=== PATIENT | male | born 1995 | race American Indian/Alaskan Native ===

== ENCOUNTER 2019-09-19 01:24 | Emergency (ER) | payer SELFPAY ==
[2019-09-19 02:08] VITALS: BP 141/78
--- NOTE | 2019-09-19 02:47 | Emergency Department Report ---
ED Upper Extremity Inj HPI - General Chief Complaint: Extremity Injury, Upper Stated Complaint: LEFT HAND INJURY AT WORK Source: patient Mode of arrival: Ambulatory Limitations: No Limitations - History of Present Illness Initial Comments: Was at work and got finger crushed between 2 large gallon bands resulting in swelling and pain occurred a few minutes prior to arrival MD Complaint: Injury to:: left, finger Other Extremity Injury: Fingers: Left (Third digit) Other Injuries: none Handedness: right Place: work Improves With: none Worsens With: none Context: crush - Related Data Previous Rx's Medication Instructions Recorded Last Taken Type Ketorolac [Toradol] 10 mg PO Q6H PRN #15 tablet 09/19/19 Unknown Rx ED Review of Systems ROS: Stated complaint: LEFT HAND INJURY AT WORK Other details as noted in HPI Comment: All other systems reviewed and negative ED Past Medical Hx - Social History Smoking Status: Never Smoker Substance Use Type: Alcohol - Medications Home Medications: Home Medications Medication Instructions Recorded Confirmed Last Taken Type Ketorolac [Toradol] 10 mg PO Q6H PRN #15 tablet 09/19/19 Unknown Rx ED Physical Exam - General Limitations: No Limitations General appearance: alert, in no apparent distress - Head Head exam: Present: atraumatic, normocephalic - Eye Eye exam: Present: normal appearance - ENT ENT exam: Present: mucous membranes moist - Neck Neck exam: Present: normal inspection - Respiratory Respiratory exam: Present: normal lung sounds bilaterally. Absent: respiratory distress - Cardiovascular Cardiovascular Exam: Present: regular rate, normal rhythm. Absent: systolic murmur, diastolic murmur, rubs, gallop - GI/Abdominal GI/Abdominal exam: Present: soft, normal bowel sounds - Rectal Rectal exam: Present: deferred - Extremities Exam Extremities exam: Present: normal inspection, tenderness - Expanded Upper Extremity Exam Left Hand L/R Back: 1 - Pain swelling mild ecchymosis noted. No trauma to the nailbed. No discharge. Vascular: Present: normal capillary refill - Back Exam Back exam: Present: normal inspection - Neurological Exam Neurological exam: Present: alert, oriented X3, CN II-XII intact, normal gait - Psychiatric Psychiatric exam: Present: normal affect, normal mood - Skin Skin exam: Present: warm, dry, intact, normal color. Absent: rash ED Course Vital Signs 09/19/19 01:47 Temperature 98.7 F Pulse Rate 72 Respiratory 20 Rate Blood Pressure 141/78 O2 Sat by Pulse 99 Oximetry ED Medical Decision Making - Radiology Data Radiology results: report reviewed [facility] [address] [place] [address] XRay Report Signed Patient: JERILYN ARREDONDO MR#: [id number] 14 : 1995 Acct:[id number] Age/Sex: 24 / M ADM Date: 09/19/19 Loc: ED Attending Dr: Ordering Physician: GEOVANNY JEREZ Date of Service: 09/19/19 Procedure(s): XR hand 3+V LT Accession Number(s): [id number] cc: GEOVANNY JEREZ Fluoro Time In Minutes: LEFT HAND 3 VIEWS INDICATION / CLINICAL INFORMATION: hand pain. COMPARISON: None available. FINDINGS: No fracture or dislocation. No significant degenerative change. No soft tissue abnormality. IMPRESSION: Negative exam. Signer Name: Leah Landry MD Signed: 09/19/2019 3:17 AM Workstation Name: [id number] Transcribed By: JR Dictated By: Leah Landry MD Electronically Authenticated By: Leah Landry MD Signed Date/Time: 09/19/19316 DD/ 5 TD/TT: Critical care attestation.: If time is entered above; I have spent that time in minutes in the direct care of this critically ill patient, excluding procedure time. ED Disposition Clinical Impression: Crushed finger, distal Disposition: DC-01 TO HOME OR SELFCARE Is pt being admited?: No Does the pt Need Aspirin: No Condition: Stable Instructions: Contusion in Adults (ED), Ice Pack Application (ED) Prescriptions: Ketorolac [Toradol] 10 mg PO Q6H PRN #15 tablet PRN Reason: Pain Referrals: PRIMARY CARE, [Primary Care Provider] - 3-5 Days
--- NOTE | 2019-09-19 03:22 | XRay Report ---
LEFT HAND 3 VIEWS INDICATION / CLINICAL INFORMATION: hand pain. COMPARISON: None available. FINDINGS: No fracture or dislocation. No significant degenerative change. No soft tissue abnormality. IMPRESSION: Negative exam. Signer Name: Leah Landry MD Signed: 09/19/2019 3:17 AM Workstation Name: [email or web address]
== END 2019-09-19 04:23 | disposition home or self-care (01) ==
LOC: ED 01:24
DX: S69.92XA Unspecified injury of left wrist, hand and finger(s), initial encounter (principal); Z79.899 Other long term (current) drug therapy; W23.0XXA Caught, crushed, jammed, or pinched between moving objects, initial encounter; Y93.89 Activity, other specified; Y92.89 Other specified places as the place of occurrence of the external cause; Y99.8 Other external cause status